=== PATIENT | male | born 1990 | race Hispanic/Latino ===

== ENCOUNTER 2021-07-22 12:18 | Emergency (ER) | payer OTHER ==
[~2021-07-22] VITALS: Ht 167.6 cm; Wt 77.1 kg
[2021-07-22 12:34] LABS: APPEARANCE,URINE Clear (CLEAR); BILIRUBIN,URINE Negative (NEGATIVE); COLOR,URINE Yellow (YELLOW); GLUCOSE, URINE (UA) Negative (NEGATIVE); KETONES,URINE Negative (NEGATIVE); LEUKOCYTE ESTERASE ,URINE Negative (NEGATIVE); NITRATE,URINE Negative (NEGATIVE); OCCULT BLOOD,URINE Negative (NEGATIVE); PROTEIN,URINE Negative (NEGATIVE); UROBILINOGEN,URINE 0.2 mg/dL (0.2-1.0)
[2021-07-22] MEDS ORDERED: CIPR250S4 PO (13:22)
[2021-07-22 13:29] VITALS: BP 110/62
== END 2021-07-22 13:28 | disposition home or self-care (01) ==
LOC: EDH 12:18
DX: R30.0 Dysuria (principal)
CPT/HCPCS: 81003

== ENCOUNTER 2022-06-27 23:33 | Emergency (ER) | payer OTHER ==
[~2022-06-27] VITALS: Ht 170.2 cm; Wt 87.1 kg
[~2022-06-27 23:33] MED LIST: CIPR250S4 PO
[2022-06-28 01:25] VITALS: BP 120/84
[2022-06-28] MEDS ORDERED: IBUP-1493 PO (01:50)
[2022-06-28] MEDS ORDERED: AMOX500C2 PO (01:50)
== END 2022-06-28 02:15 | disposition home or self-care (01) ==
LOC: EDH 23:33
DX: H66.90 Otitis media, unspecified, unspecified ear (principal)